=== PATIENT | female | born 2000 | race Two or more races ===

== ENCOUNTER 2023-01-21 16:50 | Emergency (ER) | payer OTHER ==
[~2023-01-21] VITALS: Ht 152.4 cm; Wt 46.3 kg
[2023-01-21] MEDS ORDERED: PRENA1 CHEW TA1.4 MG PO (17:36)
== END 2023-01-21 21:06 | disposition home or self-care (01) ==
LOC: ER 16:50
DX: R10.9 Unspecified abdominal pain (principal)

== ENCOUNTER 2023-07-21 23:38 | Inpatient (IN) | payer OTHER ==
[~2023-07-21] VITALS: Ht 152.4 cm; Wt 61.2 kg
[~2023-07-21 23:38] MED LIST: PRENA1 CHEW TA1.4 MG PO
== END 2023-07-24 17:14 | disposition home or self-care (01) | DRG 807 ==
LOC: LDR 23:38 → OB/GYN 23:38
PROVIDERS: Obstetrics & Gynecology; ADMIT Specialist; ATTEND Specialist
PROC: 4A1HXCZ Monitoring of Products of Conception, Cardiac Rate, External Approach (ICD-10-PCS; 2023-07-21)
PROC: 10E0XZZ Delivery of Products of Conception, External Approach (ICD-10-PCS; principal; 2023-07-22)
PROC: 0HQ9XZZ Repair Perineum Skin, External Approach (ICD-10-PCS; 2023-07-22)
DX: O70.0 First degree perineal laceration during delivery (principal); Z37.0 Single live birth; Z3A.39 39 weeks gestation of pregnancy; Z20.822 Contact with and (suspected) exposure to COVID-19